=== PATIENT | female | born 1950 | race Caucasian/White ===

== ENCOUNTER 2023-06-29 06:08 | Inpatient (IN) | payer OTHER, SELFPAY ==
--- NOTE | 2023-05-26 13:17 | CM ---
Patient is scheduled for lumbar spine surgery on 06/29/23. Spoke with patient prior to surgery via telephone. Introduced role of the Orthopedic Navigator. Patient reports that she lives with her significant other in a one story home. There is one
step to enter. She currently functions independently. She has back brace. She has had VN services. PCP is Judy Bateman.
Discussed orthopedic program, post surgical plans and tentative plan for patient to return home when directed by surgeon. Patient is in agreement with tentative plan and will have support from her significantly other when she goes home.
Plan: Orthopedic Navigator will remain available to assist with the care of patient and will reassess discharge needs after surgery.
[2023-06-07 08:18] VITALS: BMI 22.9
[2023-06-07 08:45] LABS: Hematocrit 43.6 % (37.0-47.0); Hemoglobin 14.9 g/dL (12.0-16.0); Mean Corp Hgb Conc. 34.2 g/dL (33.0-37.0); Mean Corpuscular Hgb 31.5 pg (27.0-31.0); Mean Corpuscular Volume 92.2 fL (81.0-99.0); Mean Platelet Volume 10.4 fL (7.4-10.4); Platelet Count 320 10^3/uL (130-400); Red Blood Cell Count 4.73 10^6/uL (4.20-5.40); Red Cell Dist. Width 12.2 % (11.5-14.5); White Blood Cell Count 5.2 10^3/uL (4.8-10.8)
[2023-06-07 09:14] LABS: ALT (SGPT) 28 U/L (0-35); AST (SGOT) 34 U/L (14-36); Albumin 4.1 g/dl (3.5-5.0); Alkaline Phosphatase 74 U/L (38-126); Blood Urea Nitrogen 19 mg/dl (7-17); Calcium 9.3 mg/dl (8.4-10.2); Carbon Dioxide 29 mmol/L (22-30); Chloride 100 mmol/L (98-107); Estimated Creatinine Clearance 50 ml/min; Glucose 82 mg/dl (70-99); Potassium 5.3 mmol/L (3.5-5.1); Sodium 134 mmol/L (135-145); Total Bilirubin 0.8 mg/dl (0.2-1.3); Total Protein 6.8 g/dl (6.3-8.2); eGFR > 60.00
[2023-06-07 15:54] VITALS: BMI 22.9
[2023-06-29] VITALS (17 sets, daily range): BP systolic 98–148; BP diastolic 53–91
[2023-06-29] MEDS: SKELAXIN 800 MG PO (10:29)
[2023-06-29] MEDS: CELEBREX 200 MG PO (10:29)
[2023-06-29] MEDS: LYRICA 150 MG PO (10:29)
[2023-06-29] MEDS: NORMOSOL-R 1000 IV ×2 (10:30→15:40)
[2023-06-29] MEDS: TYLENOL 1000 MG PO (10:30)
--- NOTE | 2023-06-29 11:33 | CM ---
Reviewed chart. Patient admitted for planned lumbar spine surgery with Dr. Grady. Met with patient at bedside. Confirmed information previously obtained for assessment and discussed discharge plans. Patient continues to plan to return home at
discharge. She will have support from her significant other when she goes home. Reviewed that she will work with PT/OT after surgery and that discharge needs will depend on her functional status. However, no needs currently identified.
Patient has a a brace but no other DME.
Patient will use [facility] pharmacy for discharge prescriptions.
[2023-06-29] MEDS: NORCO 5/325 2 TABLET PO (16:20)
[2023-06-29] MEDS: SENOKOT 17.1999999999999993 MG PO (20:24)
[2023-06-29] MEDS: COLACE 100 MG PO (20:24)
[2023-06-29] MEDS: ANCEF 5 IV (20:26)
[2023-06-29] MEDS: LYRICA 75 MG PO (21:26)
[2023-06-30] MEDS: NORMOSOL-R 1000 IV (01:14)
[2023-06-30] MEDS: ANCEF 5 IV (03:20)
[2023-06-30 03:35] VITALS: BP 108/57
[2023-06-30 04:54] LABS: Hematocrit 35.5 % (37.0-47.0); Hemoglobin 12.3 g/dL (12.0-16.0)
[2023-06-30 05:31] LABS: Blood Urea Nitrogen 15 mg/dl (7-17); Calcium 8.6 mg/dl (8.4-10.2); Carbon Dioxide 25 mmol/L (22-30); Chloride 100 mmol/L (98-107); Estimated Creatinine Clearance 66 ml/min; Glucose 110 mg/dl (70-99); Potassium 4.6 mmol/L (3.5-5.1); Sodium 129 mmol/L (135-145); eGFR > 60.00
--- NOTE | 2023-06-30 07:18 | PTCARENOTE ---
Pt refused tylenol and ultram despite education. Stated 'it does not work for me'.
[2023-06-30 08:00] VITALS: BP 131/66
[2023-06-30] MEDS: COLACE 100 MG PO (08:28)
[2023-06-30] MEDS: SENOKOT 17.1999999999999993 MG PO (08:28)
[2023-06-30] MEDS: NORCO 5/325 1 TABLET PO ×2 (08:32→15:43)
[2023-06-30] MEDS: NORMOSOL-R IV (09:59)
--- NOTE | 2023-06-30 10:12 | CM ---
Reviewed chart and held rounds with PT and OT. Patient admitted for planned lumbar spine surgery with Dr. Grady. Met with patient at bedside. Confirmed information previously obtained for assessment and discussed discharge plans. Patient continues to
plan to return home at discharge. She will have support from her significant other when she goes home. Reviewed that she will work with PT/OT after surgery and that discharge needs will depend on her functional status. However, no needs currently
identified.
Patient has a a brace but no other DME.
Patient will use [facility] pharmacy for discharge prescriptions.
[2023-06-30 10:22] VITALS: BP 118/65; PULSE 87; O2SAT 96
[2023-06-30 10:35] VITALS: BP 126/58; PULSE 85; O2SAT 96
[2023-06-30] MEDS: LYRICA PO (11:16)
[2023-06-30 12:00] VITALS: BP 118/57
--- NOTE | 2023-06-30 13:00 | W.PN.ORTHO ---
Today's Communication / Plan
-
d/c
Assessment
.
Distal Motor Intact: Yes
Dressing:
Clean, dry and intact.
Assessment:
Hyponatremia-IVF 250ml bolus NSS
Plan
.
Surgery / Date: L4-5 revision hemilami-psf Dr. Grady 06/29/23
Activity:
Out of bed.
PT/OT
Discharge Plan: Home
Subjective
.
.:
Patient resting comfortably.
Vital Signs and Labs
.
Vital Signs and Labs:
Lab Results
06/30/23 04:20
06/30/23 04:20
Temp Pulse Resp BP Pulse Ox
98.7 F 78 16 118/57 96
06/30/23 12:00 06/30/23 12:00 06/30/23 12:00 06/30/23 12:00 06/30/23 12:00
Physical Exam
-
HEENT: No pallor, cyanosis, or jaundice. Throat clear.
NECK: Supple. No JVD.
RESPIRATORY: Lungs clear to auscultation.
CVS: S1, S2 normal. RRR.� No murmur, rub or gallop.
ABDOMEN: Soft, non-tender. No distension. BS+/normal.
EXTREMITIES: strength equal, no calf pain with palpation
PARTS PERSON: AOx3. No focal deficits. end finder twisting department grossly intact
--- NOTE | 2023-06-30 13:07 | W.DS.TRANS ---
DC Summary - [employer]
-
Discharge Instructions:
Sleep Apnea Risk Intermediate
Discharge Diagnosis/Procedures L4-5 revision hemilami-psf Dr. Grady 06/29/23
Diet As tolerated
Activity No strenuous activity
Driving Restrictions No driving
Instructions:
Stand-Alone Forms: [facility]
Changes to Home Medications: Yes
Discharge Medications:
DC Medications w/original date entered in [facility]
Calcium + D3 1 tab PO DAILY 06/01/23
Probiotic 1 tab PO PRN PRN abd issues 06/01/23
albuterol 90 mcg-budesonide 80 mcg/actuation HFA aerosol inhaler 2 inh inhalation PRN PRN sob 06/01/23
ascorbic acid (vitamin C) 1,000 mg tablet (Vitamin C) 1 g PO DAILY 06/01/23
budesonide-formoterol HFA 160 mcg-4.5 mcg/actuation aerosol inhaler (Symbicort) 1 - 2 puff inhalation DAILY 06/01/23
bupropion HCl 150 mg 24 hr tablet, extended release 150 mg PO DAILY 06/01/23
gxxrqjcrctm-jya-mkrogzuct-vitC capsule (Glucosamine Complex-MSM capsule) 1 cap PO BID 06/01/23
levothyroxine 50 mcg tablet 50 mcg PO DAILY 06/01/23
magnesium citrate 1 tab PO DAILY 06/01/23
iqumhjvvijfx-jenjxtsv-gjcbpb tablet (Multivitamin 50 Plus tablet) 1 tab PO DAILY 06/01/23
sertraline 50 mg tablet 50 mg PO HS 06/01/23
vitamin B complex-vit B12 1 tab PO DAILY 06/01/23
acetaminophen 325 mg capsule (Tylenol) 650 mg (2 x 325 mg) PO QID #2 caps 06/30/23
cephalexin 500 mg capsule 500 mg PO QID infection prevention #20 caps 06/30/23
dexamethasone 4 mg tablet 4 mg PO BID inflammation #6 tabs 06/30/23
docusate sodium 100 mg capsule (Colace) 100 mg PO BID stool softner #1 cap 06/30/23
gabapentin 300 mg capsule 300 mg PO HS sleep/pain #10 caps 06/30/23
hydrocodone 5 mg-acetaminophen 325 mg tablet 1 tab PO Q6H PRN 1 tab moderate pain or 2 if severe #30 tabs 06/30/23
lisinopril 10 mg tablet 10 mg PO DAILY #0 tabs 06/30/23
lisinopril 5 mg tablet 5 mg PO HS #0 tabs 06/30/23
magnesium hydroxide 400 mg/5 mL oral suspension (Milk of Magnesia) 30 ml PO HS PRN Constipation #1 mL 06/30/23
ondansetron 4 mg disintegrating tablet 4 mg PO Q6H PRN n/v #20 tabs 06/30/23
sennosides 8.6 mg tablet (Senokot) 17.2 mg (2 x 8.6 mg) PO BID laxative #2 tabs 06/30/23
Home Medication Changes
cephalexin 500 mg capsule 500 mg PO QID infection prevention #20 caps 06/30/23
dexamethasone 4 mg tablet 4 mg PO BID inflammation #6 tabs 06/30/23
gabapentin 300 mg capsule 300 mg PO HS sleep/pain #10 caps 06/30/23
hydrocodone 5 mg-acetaminophen 325 mg tablet 1 tab PO Q6H PRN 1 tab moderate pain or 2 if severe #30 tabs 06/30/23
ondansetron 4 mg disintegrating tablet 4 mg PO Q6H PRN n/v #20 tabs 06/30/23
Pending Results: No
[2023-06-30] MEDS: NSS 500 IV (13:24)
[2023-06-30] MEDS: DECADRON 4 MG IV (13:25)
[2023-06-30 16:00] VITALS: BP 145/79
== END 2023-06-30 16:22 | disposition home or self-care (01) | DRG 460 ==
LOC: 2 SOUTH 06:08
PROVIDERS: Physician Assistant Medical; ADMITTING PHYSICIAN Orthopaedic Surgery Orthopaedic Surgery of the Spine; FAMILY PHYSICIAN Family Medicine
PROC: 0QB00ZZ Excision of Lumbar Vertebra, Open Approach (ICD-10-PCS; 2023-06-29)
PROC: 0SG00K1 Fusion of Lumbar Vertebral Joint with Nonautologous Tissue Substitute, Posterior Approach, Posterior Column, Open Approach (ICD-10-PCS; 2023-06-29)
DX: M43.10 Spondylolisthesis, site unspecified (principal); M48.061 Spinal stenosis, lumbar region without neurogenic claudication
CPT/HCPCS: 36415; 72100; 76000; 80048; 80053; 85014; 85018; 85027; 87070; 93005; 97116; 97162; 97166; 97535; C1713; C1776

== ENCOUNTER → 2023-12-06 08:30 | Outpatient (REF) | payer OTHER, SELFPAY | LOC: WDC 08:30 | PROVIDERS: ATTENDING PHYSICIAN Family Medicine | DX: Z12.31 Encounter for screening mammogram for malignant neoplasm of breast (principal) | CPT/HCPCS: 77063; 77067 ==

== ENCOUNTER → 2023-12-13 12:47 | Outpatient (REF) | payer OTHER, SELFPAY | LOC: HWRAD 12:47 | PROVIDERS: ATTENDING PHYSICIAN Orthopaedic Surgery Adult Reconstructive Orthopaedic Surgery; FAMILY PHYSICIAN Family Medicine | DX: Z96.652 Presence of left artificial knee joint (principal); R22.42 Localized swelling, mass and lump, left lower limb | CPT/HCPCS: 76882 ==

== ENCOUNTER → 2024-12-06 08:23 | Outpatient (REF) | payer OTHER, SELFPAY | LOC: WDC 08:23 | PROVIDERS: ATTENDING PHYSICIAN Family Medicine | DX: Z12.31 Encounter for screening mammogram for malignant neoplasm of breast (principal) | CPT/HCPCS: 77063; 77067 ==